=== PATIENT | male | born 2000 | race Caucasian/White ===

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

== ENCOUNTER 2022-10-24 12:48 | Emergency (ER) | payer OTHER, SELFPAY ==
[2022-10-24] VITALS (7 sets, daily range): BP systolic 127–142; BP diastolic 74–95; PULSE 73–93; RESP 16–27; TEMP 36.9–37.1; O2SAT 97–100
--- NOTE | ~2022-10-24 | XR_ITS ---
EXAMINATION: XR shoulder RT min 2V DATE: 10/24/2022 13:28 INDICATION: Right shoulder reduction. TECHNIQUE: 2 views of right shoulder were obtained. COMPARISON: Right shoulder radiographs 09/12/2021 FINDINGS: Bone alignment is normal. No fracture. Joint spaces are well maintained. IMPRESSION: 1. Normal right shoulder. Reviewed, dictated and finalized at location A. IMPRESSION: 1. Normal right shoulder.
[2022-10-24] MEDS: MORPHINE SULFATE (*CRX) 4 MG/ML INJ (13:00)
[2022-10-24] MEDS: ONDANSETRON INJ 4 MG/2 ML VIAL (13:00)
[2022-10-24] MEDS: PROPOFOL IV EMULSION 200 MG/20 ML VIAL (13:10)
--- NOTE | 2022-10-24 13:23 | ED.UPPEXIN ---
HPI - Extremity Injury (Upper) General Chief Complaint: Extremity Injury, Upper Stated Complaint: R shoulder out of place Time Seen by Provider: 10/24/22 12:55 History of Present Illness HPI narrative: Patient is a 22-year-old male who presents ER with right shoulder dislocation. 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 He was scratching the back of his head when his arm went out of socket. No numbness or tingling. Has pain with any attempt to move. No additional injury. Related Data Allergies Allergy/AdvReac Type Severity Reaction Status Date / Time hydrocodone [From Vicodin] AdvReac Vomiting Verified 10/24/22 14:01 Review of Systems Gastrointestinal: Gastrointestinal: Denies nausea and Denies vomiting Musculoskeletal: Musculoskeletal: Denies back pain, Reports arthralgias, Reports joint swelling and Reports muscle cramps Integumentary/Breasts: Skin/Breast: Denies erythema and Denies rash Neurologic: Denies focal weakness and Denies numbness PMFSH Past Medical History Medical History (Updated 10/24/22 @ 13:49 by Braulio Reyes MD) Shoulder dislocation Social History Social History (Updated 09/12/21 @ 14:13 by Kevin Romero, ) Living arrangements: with family Exam Narrative: GENERAL: Uncomfortable-appearing, well-nourished, and in no acute distress. HEAD: Normocephalic, atraumatic. EYES: PERRL and EOMI. ENT: Nares clear, no rhinorrhea or epistaxis. Mucous membranes moist. NECK: Supple. CHEST: Clear to auscultation. No respiratory distress. HEART: Regular rate and rhythm. Normal peripheral pulses. EXTREMITIES: Pulmonary right shoulder with limited range of motion. No tenderness or deformity to the distal joints. Neurovascular intact distal to the deformity. SKIN: Warm, dry, no rash. NEURO: Alert and oriented x3. PSYCH: Normal mood and affect. Course Course Emergency Course: Patient tolerated reduction after conscious sedation and morphine. He has been placed in a shoulder immobilizer. He will follow-up with his orthopedic surgeon Vital Signs Vital signs: Vital Signs Temperature 98.7 F 10/24/22 12:57 Pulse Rate 76 10/24/22 12:57 Respiratory Rate 18 10/24/22 12:57 Blood Pressure 133/90 10/24/22 12:57 Pulse Oximetry 100 10/24/22 12:57 Oxygen Delivery Room Air 10/24/22 12:57 Temperature 98.4 F 10/24/22 13:05 Pulse Rate 75 10/24/22 13:50 Respiratory Rate 18 10/24/22 13:50 Blood Pressure 142/95 H 10/24/22 13:50 Pulse Oximetry 100 10/24/22 13:50 Oxygen Delivery Room Air 10/24/22 13:35 Procedures Orthopedic Joint Reduction Joint #1: Orthopedic Joint Reduction Date: 10/24/22 Orthopedic Joint Reduction Time: 13:15 Time Out Performed: Yes Side: right Joint Reduction Location: shoulder Analgesia: procedural sedation Pre-Procedure Neuro Vascular Exam: normal Shoulder Technique Used (if applicable): external rotation Post-reduction neuro exam: intact Post-reduction vascular: intact Post Reduction X-Ray Obtained: Yes Post Reduction X-Ray Results: reduced Splint Applied: Yes Patient Tolerated Procedure: well Procedural Sedation Procedural Sedation #1: Procedural Sedation Date: 10/24/22 Procedural Sedation Time: 13:15 Procedure: right shoulder reduction Provider Performed: sedation and procedure Informed Consent Obtained: yes Equipment in Room: bag and mask, capnography, alarm security or surveillance monitor, crash cart, oxygen, pulse oximeter and suction Plan for Sedation: moderate sedation ASA Class: I Mallampati Classification: class I Explanation to Patient/Family: Risk/Benefits/Alternatives Pt. Educated on Procedural Sedation: Yes Re-evaluated immediately prior: Yes Preparation: alarm security or surveillance monitor applied, pulse oximeter, capnometry used, supplemental O2 applied, reversal
== END 2022-10-24 14:05 | disposition home or self-care (01) ==
PROVIDERS: Emergency Provider Emergency Medicine
DX: M24.411 Recurrent dislocation, right shoulder (principal)
CPT/HCPCS: 23650; 73030; 96374; 96375; 99285; J2270; J2405; J2704

== ENCOUNTER 2025-05-01 18:00 | Emergency (ER) | payer BC, OTHER, SELFPAY ==
[2025-05-01 18:11] VITALS: BP 120/81; PULSE 86; RESP 16; TEMP 36.4; O2SAT 100
--- NOTE | 2025-05-01 18:21 | ED_ITS ---
HPI - Ear Problem General Chief complaint: Ear Stated complaint: R EAR CLOGGED Time Seen by Provider: 05/01/25 18:00 Source: patient Mode of arrival: ambulatory Limitations: no limitations History of Present Illness HPI Narrative: Horace is a 25 year old male patient presenting to the clinic today with c/o right ear clogged/decrease hearing that started today. [place] like he may have a cerumen impaction. Has tried some ear drops without relief. Denies any URI symptoms. Denies any URI symptoms. No fevers, chills, or body aches. Related Data Allergies Allergy/AdvReac Type Severity Reaction Status Date / Time hydrocodone (From Vicodin) AdvReac Vomiting Verified 10/24/22 14:01 Review of Systems Review of Systems: Pertinent positives per HPI. Patient denies any fever, chills, rash, headache, visual changes, dizziness, cough, runny nose, sore throat, shortness of breath, chest pain, palpitations, nausea, vomiting, diarrhea, constipation, abdominal pain, or any urinary issues. PMFSH Past Medical History Medical History Shoulder dislocation Social History Social History Living arrangements: with family Comments At the time of my signature, I reviewed and agree with the nursing past medical, surgical, social, and family history. There is no relevant family history pertinent to the patient complaint. Exam Narrative: General: Well-developed, well nourished, in no apparent distress Head: Normocephalic, atraumatic Eyes: Pupils equally round and reactive to light bilaterally, EOM intact, sclera and conjunctive clear, no discharge, lids normal Ears: Left TMs intact and clear, right TM intact, mild bulging, fluid noted behind the TM, scant amount ear wax in the external right ear canal, this was removed using a lighted curette, ear canals clear, no drainage, grossly hearing normal. Nose: Nares patent, no discharge, no inflammation, no sinus tenderness. Mouth: Oropharynx without lesions or masses, good dentition, MMM. Neck: Supple, trachea midline, no enlargement of anterior or posterior cervical nodes, no thyroid masses or goiter palpable. Cardio: Regular rate and rhythm, s1 and s2 normal, no murmur appreciated. Resp: Clear to auscultation bilaterally anteriorly and posteriorly, no rhonchi, rales, wheezing or rubs Course Course Level of Care: Express Care Visit Vital Signs Vital signs: Vital Signs Temperature 36.4 C L 05/01/25 18:11 Pulse Rate 86 05/01/25 18:11 Respiratory Rate 16 05/01/25 18:11 Blood Pressure 120/81 05/01/25 18:11 Pulse Oximetry 100 05/01/25 18:11 Temperature 36.4 C L 05/01/25 18:11 Pulse Rate 86 05/01/25 18:11 Respiratory Rate 16 05/01/25 18:11 Blood Pressure 120/81 05/01/25 18:11 Pulse Oximetry 100 05/01/25 18:11 MDM MDM Narrative Medical decision making narrative: At the time of visit patient is resting comfortably on the exam table. Patient appears to be nontoxic. C/o right ear clogged/decrease hearing that started today. [place] like he may have a cerumen impaction. Has tried some ear drops without relief. Denies any URI symptoms. Denies any URI symptoms. No fevers, chills, or body aches. On exam patient has scant amount of ear wax to the external canal. This was removed using a lighted curette. Patient tolerated well. Patient has serous otitis to the right ear likely causing his symptoms. Plan: I suspect patient has serous otitis. Prescription for prednisone was sent to pharmacy. Supportive measures were discussed with the patient and they voiced understanding discharge instructions and agrees to treatment plan. Return precautions reviewed Differential Diagnosis Differential Diagnosis: Otitis media, otitis externa, eustachian tube dysfunction, cerumen impaction, upper respiratory infection, serous otitis Discharge Plan Discharge Clinical Impression: Acute serous otitis media of right ear Patient Disposition: Home Condition: Stable Instructions: Antibiotic Form, Fluid In The Ear (Serous Otitis Media) (ED) Additional Instructions: Take any prescribed medications only as directed-prednisone Tylenol/motrin as needed for pain May use heating pad to alleviate pain If you get recurrent ear infections it may be warranted to follow up with ENT. Follow up with your PCP in 3-5 days if symptoms persist. Patient Language: Egyptian Prescriptions: New prednisone 20 mg tablet 40 mg PO DAILY 5 Days Qty: 10 0RF No Action hydrocodone-acetaminophen 5-325 mg tablet 1 tablet PO Q6H PRN (Reason: pain) Qty: 12 0RF Follow-up/Referrals: PHYSICIAN,TECHNICAL SME [Primary Care Provider, Internal Medicine] Time of Disposition: 18:22 Quality NIHSS Nursing Documentation ED NIHSS nursing documentation: reviewed/agree
== END 2025-05-01 18:31 | disposition home or self-care (01) ==
PROVIDERS: Emergency Provider Nurse Practitioner Family
DX: H65.01 Acute serous otitis media, right ear (principal)
CPT/HCPCS: 99213; G0463